=== PATIENT | male | born 1945 | race African-American/Black ===

== ENCOUNTER 2017-06-08 20:22 | Inpatient (IN) ==
[2017-06-08] MEDS ORDERED: methylPREDNISolone SOD SUC 125 MG/2 ML VIAL IV STA (22:18)
[2017-06-08] MEDS ORDERED: FUROSEMIDE 100 MG/10 ML VIAL IV STA (22:18)
[2017-06-08] MEDS ORDERED: ONDANSETRON 4 MG/2 ML VIAL IV STA (22:18)
[2017-06-08] MEDS ORDERED: MORPHINE 2 MG/1 ML SYRINGE IV STA (22:18)
[2017-06-08] MEDS ORDERED: ALBUTEROL 2.5 MG/3 ML NEB RESP TX SCH (22:30)
[2017-06-08] MEDS ORDERED: MORPHINE 10 MG/1 ML VIAL ONE (22:42)
[2017-06-08] MEDS ORDERED: FUROSEMIDE 40 MG/4 ML VIAL ONE (22:42)
[2017-06-08] MEDS ORDERED: ONDANSETRON 4 MG/2 ML VIAL ONE (22:42)
[2017-06-08] MEDS ORDERED: FUROSEMIDE 20 MG/2 ML VIAL ONE (22:43)
[2017-06-08] MEDS ORDERED: methylPREDNISolone SOD SUC 125 MG/2 ML VIAL ONE (22:43)
[2017-06-08 23:17] LABS: Basophils % 0.2 % (0.0-0.8); Hematocrit 32.7 VOL% (42.0-52.0); Immature Granulocytes % 0.4 %; Immature Granulocytes Absolute 0.02 #; Lymphocytes # 0.6 10*3/uL (1.4-4.0); Lymphocytes % 11.1 % (21.2-54.2); Mean Corpuscular HGB Conc 33.6 GM/DL (32-36); Mean Corpuscular Hemoglobin 32 PG (27-34); Mean Corpuscular Volume 94.8 FL (87-102); Monocytes # 0.3 10*3/uL (0.11-0.8); Neutrophils # 4.3 10*3/uL (1.4-7.4); Neutrophils % 83.3 % (38.7-73.9); Platelet Count 158 T/CUMM (130-400); Red Blood Count 3.45 MC/CUMM (3.8-5.5); Red Cell Distribution Width 13.2 % (9.3-17.3); White Blood Count 5.2 T/CUMM (4-12)
[2017-06-08 23:30] LABS: PT Patient Result 10.9 SECS
[2017-06-08 23:49] LABS: Albumin 3.3 G/DL (3.4-5.0); Bilirubin,Total 0.6 MG/DL (0.2-1.0); Calcium 8.5 MG/DL (8.5-10.1); Osmolality,Calculated 298.7 MOS/KG (273-304); Potassium 3.5 MMOL/L (3.5-5.1); Total Protein 6.2 G/DL (6.4-8.3)
[2017-06-08 23:55] LABS: Troponin I Only 1.64 NG/ML (0.00-0.045)
[2017-06-09] MEDS ORDERED: ASPIRIN 325 MG TABLET ONE (00:16)
[2017-06-09] MEDS ORDERED: ENOXAPARIN 100 MG/ML SYRINGE SUBCUT ONE (01:26)
[2017-06-09] MEDS ORDERED: GLUCAGON 1 MG VIAL IM PRN (01:39)
[2017-06-09] MEDS ORDERED: MORPHINE 2 MG/1 ML SYRINGE IV PRN (01:39)
[2017-06-09] MEDS ORDERED: DEXTROSE 50% 25 GM/50 ML VIAL IV PRN (01:39)
[2017-06-09] MEDS ORDERED: ONDANSETRON 4 MG/2 ML VIAL IV PRN (01:39)
[2017-06-09] MEDS ORDERED: ASPIRIN 325 MG TABLET PO ONE (01:39)
[2017-06-09] MEDS: ENOXAPARIN 100 MG/ML SYRINGE SUBCUT SCH (03:30)
[2017-06-09 07:05] LABS: Risk Ratio 2.72; Thyroid Stimulating Hormone 1.02 uIU/ml (0.358-3.74); VLDL CHOLESTEROL 10.6 MG/DL
[2017-06-09] MEDS ORDERED: NITROGLYCERIN SL 0.4 MG TABLET SL PRN (08:41)
[2017-06-09] MEDS: DOCUSATE SODIUM 100 MG CAPSULE PO SCH ×2 (09:20→20:47)
[2017-06-09] MEDS: ASPIRIN 325 MG TABLET PO SCH (09:21)
[2017-06-09] MEDS: FUROSEMIDE 40 MG/4 ML VIAL IV SCH ×2 (09:21→19:19)
[2017-06-09] MEDS: PANTOPRAZOLE 40 MG TABLET PO SCH (09:21)
[2017-06-09] MEDS: INSULIN REGULAR 100 UNIT/ML SUBCUT SCH ×4 (09:22→20:47)
[2017-06-09] MEDS: CARVEDILOL 6.25 MG TABLET PO SCH ×2 (09:41→20:47)
[2017-06-09] MEDS ORDERED: POTASSIUM CHLORIDE RIDER 10 MEQ in PREMIX 1 EACH IV PRN (10:11)
[2017-06-09] MEDS ORDERED: MAGNESIUM SULF RIDER 2 GM in PREMIX 1 EACH IV PRN ×2 (10:11→10:12)
[2017-06-09] MEDS ORDERED: POTASSIUM CHLORIDE INJ 20 MEQ in SODIUM CHLORIDE 0.45% 250 ML IV PRN (10:12)
[2017-06-09] MEDS ORDERED: diphenhydrAMINE CAP 25 MG CAPSULE PO ONE (10:30)
[2017-06-09] MEDS ORDERED: DIAZEPAM 5 MG TABLET PO ONE (10:30)
[2017-06-09] MEDS ORDERED: traMADol 50 MG TABLET PO PRN (10:40)
[2017-06-09 12:06] LABS: Hepatitis B Surface Ag Quant < 0.10 Index; Hepatitis B Surface Ag Result Negative (Negative)
[2017-06-09 12:09] LABS: Hepatitis A Ab IgM Quant 0.28 Index; Hepatitis A Ab IgM Result Negative (Negative)
[2017-06-09 12:10] LABS: Hepatitis B Core IgM Quant 0.16 Index; Hepatitis B Core IgM Result Negative (Negative); Hepatitis C Virus Ab Quant 0.03 Index; Hepatitis C Virus Ab Result Negative (Negative)
[2017-06-09] MEDS ORDERED: ATORVASTATIN 20 MG TABLET PO SCH (21:00)
[2017-06-10] MEDS: ENOXAPARIN 100 MG/ML SYRINGE SUBCUT SCH (02:04)
[2017-06-10] MEDS ORDERED: SODIUM CHLORIDE 0.9% 1,000 ML IV SCH (06:00)
[2017-06-10] MEDS ORDERED: diphenhydrAMINE CAP 25 MG CAPSULE PO ONE (06:00)
[2017-06-10] MEDS ORDERED: DIAZEPAM 5 MG TABLET PO ONE (06:00)
[2017-06-10 06:40] LABS: Basophils # 0.1 10*3/uL (0.0-0.2); Basophils % 0.7 % (0.0-0.8); Eosinophils # 0.1 10*3/uL (0.0-0.87); Eosinophils % 0.8 % (0.00-10.9); Hematocrit 33.3 VOL% (42.0-52.0); Immature Granulocytes % 0.5 %; Immature Granulocytes Absolute 0.05 #; Lymphocytes # 2.9 10*3/uL (1.4-4.0); Lymphocytes % 28.5 % (21.2-54.2); Mean Corpuscular Hemoglobin 32 PG (27-34); Mean Platelet Volume 10.6 FL (9.6-12.0); Monocytes # 0.7 10*3/uL (0.11-0.8); Neutrophils # 6.3 10*3/uL (1.4-7.4); Neutrophils % 62.5 % (38.7-73.9); Platelet Count 162 T/CUMM (130-400); Red Blood Count 3.47 MC/CUMM (3.8-5.5); Red Cell Distribution Width 13.7 % (9.3-17.3); White Blood Count 10.1 T/CUMM (4-12)
[2017-06-10 06:51] LABS: Calcium 8.6 MG/DL (8.5-10.1); Potassium 3.7 MMOL/L (3.5-5.1)
[2017-06-10] MEDS: CARVEDILOL 6.25 MG TABLET PO SCH ×3 (06:57→20:44)
[2017-06-10 07:05] LABS: Calcium 8.6 MG/DL (8.5-10.1); Magnesium 2.2 MG/DL (1.8-2.4); Potassium 3.6 MMOL/L (3.5-5.1)
[2017-06-10] MEDS ORDERED: LIDOCAINE 1% 20 ML VIAL ONE (07:31)
[2017-06-10] MEDS ORDERED: MIDAZOLAM 2 MG/2 ML VIAL ONE (07:31)
[2017-06-10] MEDS ORDERED: fentaNYL 100 MCG/2 ML VIAL ONE (07:32)
[2017-06-10] MEDS ORDERED: VERAPAMIL 5 MG/2 ML VIAL ONE (07:35)
[2017-06-10] MEDS ORDERED: NITROGLYCERIN DRIP 50 MG/250 ML BOTTLE IV ONE (07:35)
[2017-06-10] MEDS ORDERED: ENOXAPARIN 30 MG/0.3 ML SYRINGE ONE (07:40)
[2017-06-10] MEDS: INSULIN REGULAR 100 UNIT/ML SUBCUT SCH ×4 (07:47→20:46)
[2017-06-10] MEDS: LOSARTAN 50 MG TABLET PO SCH (09:08)
[2017-06-10] MEDS: DOCUSATE SODIUM 100 MG CAPSULE PO SCH ×2 (09:09→20:44)
[2017-06-10] MEDS: PANTOPRAZOLE 40 MG TABLET PO SCH ×2 (09:09→09:12)
[2017-06-10] MEDS: FUROSEMIDE 40 MG/4 ML VIAL IV SCH ×2 (09:09→16:18)
[2017-06-10] MEDS: ASPIRIN 325 MG TABLET PO SCH (09:11)
[2017-06-10] MEDS: ATORVASTATIN 80 MG TABLET PO SCH (20:44)
[2017-06-11] MEDS: ENOXAPARIN 100 MG/ML SYRINGE SUBCUT SCH (01:52)
[2017-06-11 06:15] LABS: Basophils # 0.1 10*3/uL (0.0-0.2); Eosinophils # 0.2 10*3/uL (0.0-0.87); Eosinophils % 2.8 % (0.00-10.9); Hematocrit 31.2 VOL% (42.0-52.0); Hemoglobin 10.6 GM/DL (14.0-18.0); Immature Granulocytes % 0.5 %; Immature Granulocytes Absolute 0.03 #; Lymphocytes # 2.3 10*3/uL (1.4-4.0); Mean Corpuscular Hemoglobin 32 PG (27-34); Mean Corpuscular Volume 94.3 FL (87-102); Mean Platelet Volume 10.5 FL (9.6-12.0); Monocytes # 0.5 10*3/uL (0.11-0.8); Monocytes % 8.6 % (1.7-12.7); Neutrophils # 3.1 10*3/uL (1.4-7.4); Neutrophils % 50.1 % (38.7-73.9); Platelet Count 151 T/CUMM (130-400); Red Blood Count 3.31 MC/CUMM (3.8-5.5); Red Cell Distribution Width 13.6 % (9.3-17.3); White Blood Count 6.1 T/CUMM (4-12)
[2017-06-11 06:45] LABS: Calcium 8.5 MG/DL (8.5-10.1); Magnesium 2.3 MG/DL (1.8-2.4); Osmolality,Calculated 296.3 MOS/KG (273-304); Potassium 4.4 MMOL/L (3.5-5.1)
[2017-06-11] MEDS: INSULIN REGULAR 100 UNIT/ML SUBCUT SCH ×4 (07:49→21:10)
[2017-06-11] MEDS: LOSARTAN 50 MG TABLET PO SCH (08:19)
[2017-06-11] MEDS: DOCUSATE SODIUM 100 MG CAPSULE PO SCH ×2 (08:19→21:09)
[2017-06-11] MEDS: CARVEDILOL 6.25 MG TABLET PO SCH ×2 (08:19→21:09)
[2017-06-11] MEDS: FUROSEMIDE 40 MG/4 ML VIAL IV SCH ×2 (08:19→17:09)
[2017-06-11] MEDS: PANTOPRAZOLE 40 MG TABLET PO SCH ×2 (08:19→09:44)
[2017-06-11] MEDS: ASPIRIN 325 MG TABLET PO SCH (08:19)
[2017-06-11] MEDS: NITROGLYCERIN 2% OINT 1 INCH/GM PACK TOP SCH ×2 (12:03→17:10)
[2017-06-11] MEDS: ATORVASTATIN 80 MG TABLET PO SCH (21:09)
[2017-06-12] MEDS: ENOXAPARIN 100 MG/ML SYRINGE SUBCUT SCH (01:34)
[2017-06-12 04:45] LABS: Basophils # 0.1 10*3/uL (0.0-0.2); Basophils % 1.1 % (0.0-0.8); Eosinophils # 0.3 10*3/uL (0.0-0.87); Eosinophils % 3.9 % (0.00-10.9); Hematocrit 32.9 VOL% (42.0-52.0); Immature Granulocytes % 0.3 %; Immature Granulocytes Absolute 0.02 #; Mean Corpuscular HGB Conc 33.4 GM/DL (32-36); Mean Corpuscular Hemoglobin 32 PG (27-34); Mean Corpuscular Volume 96.5 FL (87-102); Mean Platelet Volume 10.1 FL (9.6-12.0); Monocytes # 0.8 10*3/uL (0.11-0.8); Monocytes % 11.9 % (1.7-12.7); Neutrophils # 3.3 10*3/uL (1.4-7.4); Neutrophils % 51.8 % (38.7-73.9); Platelet Count 149 T/CUMM (130-400); Red Blood Count 3.41 MC/CUMM (3.8-5.5); Red Cell Distribution Width 13.3 % (9.3-17.3); White Blood Count 6.4 T/CUMM (4-12)
[2017-06-12 05:12] LABS: Calcium 8.6 MG/DL (8.5-10.1)
[2017-06-12 05:13] LABS: Magnesium 2.3 MG/DL (1.8-2.4); Osmolality,Calculated 289.5 MOS/KG (273-304); Potassium 4.3 MMOL/L (3.5-5.1)
[2017-06-12] MEDS: NITROGLYCERIN 2% OINT 1 INCH/GM PACK TOP SCH ×4 (06:48→19:30)
[2017-06-12] MEDS ORDERED: ASPIRIN CHEW 81 MG TABLET PO ONE (09:12)
[2017-06-12] MEDS: FUROSEMIDE 40 MG/4 ML VIAL IV SCH ×2 (09:29→16:27)
[2017-06-12] MEDS: PANTOPRAZOLE 40 MG TABLET PO SCH ×2 (09:31→09:33)
[2017-06-12] MEDS: INSULIN REGULAR 100 UNIT/ML SUBCUT SCH ×4 (09:31→21:22)
[2017-06-12] MEDS: CARVEDILOL 6.25 MG TABLET PO SCH ×2 (09:31→21:21)
[2017-06-12] MEDS: ASPIRIN 325 MG TABLET PO SCH (09:32)
[2017-06-12] MEDS: DOCUSATE SODIUM 100 MG CAPSULE PO SCH ×2 (09:32→21:21)
[2017-06-12] MEDS: LOSARTAN 50 MG TABLET PO SCH (09:32)
[2017-06-12] MEDS: ATORVASTATIN 80 MG TABLET PO SCH (21:21)
[2017-06-13] MEDS: NITROGLYCERIN 2% OINT 1 INCH/GM PACK TOP SCH ×4 (00:08→18:28)
[2017-06-13] MEDS: ENOXAPARIN 100 MG/ML SYRINGE SUBCUT SCH (02:27)
[2017-06-13 03:17] LABS: Basophils % 0.7 % (0.0-0.8); Eosinophils # 0.2 10*3/uL (0.0-0.87); Eosinophils % 3.2 % (0.00-10.9); Hematocrit 34.1 VOL% (42.0-52.0); Hemoglobin 11.3 GM/DL (14.0-18.0); Immature Granulocytes % 0.4 %; Immature Granulocytes Absolute 0.02 #; Lymphocytes # 1.7 10*3/uL (1.4-4.0); Lymphocytes % 30.1 % (21.2-54.2); Mean Corpuscular HGB Conc 33.1 GM/DL (32-36); Mean Corpuscular Hemoglobin 32 PG (27-34); Mean Corpuscular Volume 95.5 FL (87-102); Mean Platelet Volume 10.1 FL (9.6-12.0); Monocytes # 0.6 10*3/uL (0.11-0.8); Monocytes % 10.9 % (1.7-12.7); Neutrophils # 3.1 10*3/uL (1.4-7.4); Neutrophils % 54.7 % (38.7-73.9); Platelet Count 148 T/CUMM (130-400); Red Blood Count 3.57 MC/CUMM (3.8-5.5); Red Cell Distribution Width 13.2 % (9.3-17.3); White Blood Count 5.6 T/CUMM (4-12)
[2017-06-13 03:33] LABS: Calcium 8.1 MG/DL (8.5-10.1); Magnesium 2.4 MG/DL (1.8-2.4); Osmolality,Calculated 295.5 MOS/KG (273-304); Potassium 4.2 MMOL/L (3.5-5.1)
[2017-06-13] MEDS ORDERED: ASPIRIN CHEW 81 MG TABLET PO ONE (09:17)
[2017-06-13] MEDS: DOCUSATE SODIUM 100 MG CAPSULE PO SCH ×2 (10:02→21:08)
[2017-06-13] MEDS: LOSARTAN 50 MG TABLET PO SCH (10:02)
[2017-06-13] MEDS: ASPIRIN 325 MG TABLET PO SCH (10:03)
[2017-06-13] MEDS: amLODIPine 5 MG TABLET PO SCH (10:03)
[2017-06-13] MEDS: CARVEDILOL 6.25 MG TABLET PO SCH ×2 (10:04→21:08)
[2017-06-13] MEDS: PANTOPRAZOLE 40 MG TABLET PO SCH ×2 (10:04)
[2017-06-13] MEDS: FUROSEMIDE 40 MG/4 ML VIAL IV SCH ×2 (10:05→16:12)
[2017-06-13] MEDS: INSULIN REGULAR 100 UNIT/ML SUBCUT SCH ×4 (10:05→21:08)
[2017-06-13] MEDS: ATORVASTATIN 80 MG TABLET PO SCH (21:08)
[2017-06-14] MEDS: NITROGLYCERIN 2% OINT 1 INCH/GM PACK TOP SCH ×4 (00:07→18:42)
[2017-06-14] MEDS: ENOXAPARIN 100 MG/ML SYRINGE SUBCUT SCH (02:02)
[2017-06-14 04:46] LABS: Basophils % 0.8 % (0.0-0.8); Eosinophils # 0.2 10*3/uL (0.0-0.87); Eosinophils % 4.3 % (0.00-10.9); Hematocrit 34.9 VOL% (42.0-52.0); Immature Granulocytes % 0.4 %; Immature Granulocytes Absolute 0.02 #; Lymphocytes # 1.7 10*3/uL (1.4-4.0); Lymphocytes % 32.5 % (21.2-54.2); Mean Corpuscular HGB Conc 34.4 GM/DL (32-36); Mean Corpuscular Hemoglobin 32 PG (27-34); Mean Corpuscular Volume 93.1 FL (87-102); Mean Platelet Volume 9.6 FL (9.6-12.0); Monocytes # 0.6 10*3/uL (0.11-0.8); Monocytes % 11.7 % (1.7-12.7); Neutrophils # 2.6 10*3/uL (1.4-7.4); Neutrophils % 50.3 % (38.7-73.9); Platelet Count 164 T/CUMM (130-400); Red Blood Count 3.75 MC/CUMM (3.8-5.5); Red Cell Distribution Width 13.2 % (9.3-17.3); White Blood Count 5.1 T/CUMM (4-12)
[2017-06-14 06:10] LABS: Calcium 8.8 MG/DL (8.5-10.1); Magnesium 2.5 MG/DL (1.8-2.4); Osmolality,Calculated 300.5 MOS/KG (273-304); Potassium 4.4 MMOL/L (3.5-5.1)
[2017-06-14] MEDS ORDERED: ASPIRIN CHEW 81 MG TABLET PO ONE (08:41)
[2017-06-14] MEDS: DOCUSATE SODIUM 100 MG CAPSULE PO SCH ×2 (08:46→21:10)
[2017-06-14] MEDS: PANTOPRAZOLE 40 MG TABLET PO SCH (08:46)
[2017-06-14] MEDS: LOSARTAN 50 MG TABLET PO SCH (08:46)
[2017-06-14] MEDS: CARVEDILOL 6.25 MG TABLET PO SCH ×2 (08:46→21:10)
[2017-06-14] MEDS: amLODIPine 5 MG TABLET PO SCH (08:46)
[2017-06-14] MEDS: INSULIN REGULAR 100 UNIT/ML SUBCUT SCH ×4 (08:47→21:06)
[2017-06-14] MEDS: ASPIRIN 325 MG TABLET PO SCH (08:47)
[2017-06-14] MEDS: FUROSEMIDE 40 MG/4 ML VIAL IV SCH ×2 (08:47→16:15)
[2017-06-14] MEDS ORDERED: GLUCAGON 1 MG VIAL IM PRN (11:51)
[2017-06-14] MEDS ORDERED: DEXTROSE 50% 25 GM/50 ML VIAL IV PRN (11:51)
[2017-06-14] MEDS: SODIUM CHLORIDE 0.9% 1,000 ML IV SCH (12:28)
[2017-06-14] MEDS: CHLORHEXIDINE 0.12% ORAL RINSE 60 ML BOTTLE SWISH/SPIT SCH (21:10)
[2017-06-14] MEDS: ALUMINUM/MAGNES/SIMETH MAX STR 30 ML UDCUP PO PRN (21:10)
[2017-06-14] MEDS: ATORVASTATIN 80 MG TABLET PO SCH (21:10)
[2017-06-15] MEDS: NITROGLYCERIN 2% OINT 1 INCH/GM PACK TOP SCH ×4 (01:07→17:39)
[2017-06-15] MEDS: ENOXAPARIN 100 MG/ML SYRINGE SUBCUT SCH (01:19)
[2017-06-15 05:28] LABS: Basophils % 0.8 % (0.0-0.8); Eosinophils # 0.1 10*3/uL (0.0-0.87); Eosinophils % 2.8 % (0.00-10.9); Hematocrit 33.8 VOL% (42.0-52.0); Hemoglobin 11.3 GM/DL (14.0-18.0); Immature Granulocytes % 0.4 %; Immature Granulocytes Absolute 0.02 #; Lymphocytes # 1.7 10*3/uL (1.4-4.0); Lymphocytes % 32.5 % (21.2-54.2); Mean Corpuscular HGB Conc 33.4 GM/DL (32-36); Mean Corpuscular Hemoglobin 32 PG (27-34); Mean Corpuscular Volume 94.4 FL (87-102); Monocytes # 0.6 10*3/uL (0.11-0.8); Monocytes % 12.4 % (1.7-12.7); Neutrophils # 2.6 10*3/uL (1.4-7.4); Neutrophils % 51.1 % (38.7-73.9); Platelet Count 134 T/CUMM (130-400); Red Blood Count 3.58 MC/CUMM (3.8-5.5); Red Cell Distribution Width 13.3 % (9.3-17.3); White Blood Count 5.1 T/CUMM (4-12)
[2017-06-15 05:56] LABS: Calcium 8.3 MG/DL (8.5-10.1); Magnesium 2.4 MG/DL (1.8-2.4); Osmolality,Calculated 292.4 MOS/KG (273-304); Potassium 4.3 MMOL/L (3.5-5.1)
[2017-06-15] MEDS ORDERED: CEFUROXIME INJ 1,500 MG in SYRINGE 1 EACH IV ONE (06:00)
[2017-06-15] MEDS ORDERED: ASPIRIN CHEW 81 MG TABLET PO ONE (07:53)
[2017-06-15] MEDS: INSULIN REGULAR 100 UNIT/ML SUBCUT SCH ×4 (08:19→21:04)
[2017-06-15] MEDS: PANTOPRAZOLE 40 MG TABLET PO SCH (08:34)
[2017-06-15] MEDS: amLODIPine 5 MG TABLET PO SCH (08:35)
[2017-06-15] MEDS: LOSARTAN 50 MG TABLET PO SCH (08:35)
[2017-06-15] MEDS: DOCUSATE SODIUM 100 MG CAPSULE PO SCH ×2 (08:35→21:03)
[2017-06-15] MEDS: ASPIRIN 325 MG TABLET PO SCH (08:35)
[2017-06-15] MEDS: CARVEDILOL 6.25 MG TABLET PO SCH ×2 (08:35→21:02)
[2017-06-15] MEDS: CHLORHEXIDINE 0.12% ORAL RINSE 60 ML BOTTLE SWISH/SPIT SCH ×2 (08:54→21:03)
[2017-06-15] MEDS: FUROSEMIDE 40 MG/4 ML VIAL IV SCH ×2 (08:54→16:35)
[2017-06-15] MEDS: SODIUM CHLORIDE 0.9% 1,000 ML IV SCH (13:00)
[2017-06-15] MEDS: CHLORHEXIDINE 4% SOLN 118 ML BOTTLE TOP SCH ×2 (14:50→21:04)
[2017-06-15] MEDS: ALUMINUM/MAGNES/SIMETH MAX STR 30 ML UDCUP PO PRN (17:54)
[2017-06-15] MEDS ORDERED: FAMOTIDINE 20 MG TABLET PO ONE (20:33)
[2017-06-15] MEDS: ATORVASTATIN 80 MG TABLET PO SCH (21:02)
[2017-06-16] MEDS: NITROGLYCERIN 2% OINT 1 INCH/GM PACK TOP SCH (00:21)
[2017-06-16 04:26] LABS: ABG Base Excess 2.6 MMOL/L (-2.5-2.5); ABG HCO3 26.6 MMOL/L (20-26); ABG Oxygen Saturation 93.9 % (95-100); ABG PH 7.429 (7.35-7.45); ABG PO2 70.3 MM HG (80-95); ABG TCO2 24.1 MMOL/L (23-27); Allen Test Positive; Pt O2 Delivery Device Room Air
[2017-06-16] MEDS ORDERED: PAPAVERINE 60 MG/2 ML VIAL ONE (05:23)
[2017-06-16] MEDS ORDERED: VANCOMYCIN 1,000 MG VIAL ONE (05:24)
[2017-06-16] MEDS ORDERED: FAMOTIDINE 20 MG TABLET PO ONE (05:30)
[2017-06-16] MEDS ORDERED: DIAZEPAM 5 MG TABLET PO ONE (05:30)
[2017-06-16] MEDS ORDERED: SUFentanil 250 MCG/5 ML AMP ONE (05:37)
[2017-06-16] MEDS ORDERED: CALCIUM CHLORIDE 1,000 MG/10 ML VIAL IV ONE (05:37)
[2017-06-16] MEDS ORDERED: NITROGLYCERIN DRIP 50 MG/250 ML BOTTLE IV ONE (05:38)
[2017-06-16] MEDS ORDERED: ETOMIDATE 40 MG/20 ML VIAL IV ONE (05:38)
[2017-06-16] MEDS ORDERED: PHENYLEPHRINE DRIP 20 MG/250 ML PREMIX IV ONE (05:38)
[2017-06-16] MEDS ORDERED: SODIUM CHLORIDE 0.9% 1,000 ML IV ONE (05:38)
[2017-06-16] MEDS ORDERED: MIDAZOLAM 10 MG/2 ML VIAL ONE (05:38)
[2017-06-16] MEDS ORDERED: ePHEDrine 50 MG/ML AMP ONE (05:38)
[2017-06-16] MEDS ORDERED: VECURONIUM 10 MG VIAL IV ONE (05:38)
[2017-06-16] MEDS ORDERED: LACTATED RINGERS 1,000 ML IV ONE (05:38)
[2017-06-16] MEDS: CARVEDILOL 6.25 MG TABLET PO SCH (05:39)
[2017-06-16 05:54] LABS: Basophils # 0.1 10*3/uL (0.0-0.2); Basophils % 0.9 % (0.0-0.8); Eosinophils # 0.1 10*3/uL (0.0-0.87); Eosinophils % 2.6 % (0.00-10.9); Hematocrit 33.8 VOL% (42.0-52.0); Hemoglobin 11.6 GM/DL (14.0-18.0); Immature Granulocytes % 0.6 %; Immature Granulocytes Absolute 0.03 #; Lymphocytes # 1.5 10*3/uL (1.4-4.0); Lymphocytes % 27.6 % (21.2-54.2); Mean Corpuscular HGB Conc 34.3 GM/DL (32-36); Mean Corpuscular Hemoglobin 32 PG (27-34); Mean Corpuscular Volume 93.1 FL (87-102); Mean Platelet Volume 9.6 FL (9.6-12.0); Monocytes # 0.7 10*3/uL (0.11-0.8); Monocytes % 12.5 % (1.7-12.7); Neutrophils % 55.8 % (38.7-73.9); Platelet Count 154 T/CUMM (130-400); Red Blood Count 3.63 MC/CUMM (3.8-5.5); Red Cell Distribution Width 13.2 % (9.3-17.3); White Blood Count 5.3 T/CUMM (4-12)
[2017-06-16] MEDS ORDERED: CEFUROXIME INJ 1,500 MG in SYRINGE 1 EACH IV ONE (06:00)
[2017-06-16 06:21] LABS: Calcium 8.2 MG/DL (8.5-10.1); Magnesium 2.6 MG/DL (1.8-2.4); Osmolality,Calculated 288.3 MOS/KG (273-304); Potassium 4.2 MMOL/L (3.5-5.1)
[2017-06-16 07:35] LABS: ABG Base Excess 1.4 MMOL/L (-2.5-2.5); ABG HCO3 25.7 MMOL/L (20-26); ABG PCO2 34.5 MM HG (35-48); ABG PH 7.465 (7.35-7.45); ABG TCO2 22.3 MMOL/L (23-27); Glucose Heart Surgery 103 MG/DL (74-106); Hematocrit Heart Surgery 32.4 PERCENT (42-52); Hemoglobin Heart Surgery 10.5 G/DL (14.0-18.0); Ionized Calcium Arterial 1.28 MMOL/L (1.21-1.46); PCO2 Patient Temp Arterial 34.5 MMHG; PH Patient Temp Arterial 7.465; Patient Temperature 37 CELCIUS; Sodium Heart/CVR 139 MMOL/L (135-145)
[2017-06-16 07:37] LABS: Apearance,Urine CLEAR (Clear); Bilirubin,Urine Negative (Negative); Blood, Urine Negative (Negative); Glucose,Urine (UA) Negative (Negative); Ketones,Urine Negative (Negative); Nitrite,Urine Negative (Negative); Protein,Urine 100 MG/DL; Urine Color Yellow (Yellow); Urine Specific Gravity 1.012 (1.001-1.035); Urine Urobilinogen < 2.0 EU/DL (0.2-1.0); WBC,Urine 1 /HPF (0-6)
[2017-06-16] MEDS ORDERED: PHENYLEPHRINE DRIP 40 MG/250 ML PREMIX IV ONE (08:09)
[2017-06-16] MEDS ORDERED: NITROPRUSSIDE 50 MG/2 ML VIAL ONE (08:09)
[2017-06-16 09:08] LABS: Hemoglobin Heart Surgery 6.7 G/DL (14.0-18.0); PCO2 Patient Temp Venous 35.5 MM HG; PH Patient Temp Venous 7.47; PO2 Patient Temp Venous 48.9 MM HG; Potassium Heart/CVR 4.6 MMOL/L (3.5-5.1); VBG Base Excess 2.4 MEQ/L (0-4); VBG HCO3 26.5 MEQ/L (24-28); VBG Oxygen Saturation 91.1 %; VBG PH 7.426; VBG PO2 59.6 MMHG (17-40)
[2017-06-16] MEDS ORDERED: TRANEXAMIC ACID 1,000 MG/10 ML VIAL IV ONE (09:15)
[2017-06-16 09:39] LABS: Hematocrit Heart Surgery 24.3 PERCENT (42-52); Hemoglobin Heart Surgery 7.8 G/DL (14.0-18.0); PH Patient Temp Venous 7.529; PO2 Patient Temp Venous 39.6 MM HG; Potassium Heart/CVR 4.7 MMOL/L (3.5-5.1); VBG Base Excess 1.2 MEQ/L (0-4); VBG HCO3 25.3 MEQ/L (24-28); VBG Oxygen Saturation 87.1 %; VBG PCO2 32.4 MMHG (41-51); VBG PH 7.484; VBG PO2 48.6 MMHG (17-40)
[2017-06-16 10:05] LABS: PCO2 Patient Temp Venous 34.7 MM HG; PH Patient Temp Venous 7.464; PO2 Patient Temp Venous 46.5 MM HG; Potassium Heart/CVR 4.9 MMOL/L (3.5-5.1); VBG Base Excess 1.4 MEQ/L (0-4); VBG HCO3 25.5 MEQ/L (24-28); VBG Oxygen Saturation 84.7 %; VBG PCO2 34.7 MMHG (41-51); VBG PH 7.464; VBG PO2 46.5 MMHG (17-40)
[2017-06-16] MEDS ORDERED: DEXTROSE 5% KCL 20 MEQ 20 MEQ/1,000 ML BAG IV ONE (10:31)
[2017-06-16] MEDS ORDERED: SODIUM BICARBONATE 50 MEQ/50 ML SYRINGE IV ONE (10:31)
[2017-06-16] MEDS ORDERED: ALBUMIN 25% 25 GM/100 ML VIAL IV ONE (10:31)
[2017-06-16] MEDS ORDERED: PROTAMINE SULFATE 250 MG/25 ML VIAL IV ONE (10:31)
[2017-06-16 10:32] LABS: ABG Base Excess 1.3 MMOL/L (-2.5-2.5); ABG HCO3 25.6 MMOL/L (20-26); ABG PCO2 40.6 MM HG (35-48); ABG PH 7.413 (7.35-7.45); ABG TCO2 23.9 MMOL/L (23-27); Glucose Heart Surgery 183 MG/DL (74-106); Hematocrit Heart Surgery 27.4 PERCENT (42-52); Hemoglobin Heart Surgery 8.8 G/DL (14.0-18.0); Ionized Calcium Arterial 1.26 MMOL/L (1.21-1.46); PCO2 Patient Temp Arterial 40.6 MMHG; PH Patient Temp Arterial 7.413; Patient Temperature 37 CELCIUS; Potassium Heart/CVR 4.5 MMOL/L (3.5-5.1); Sodium Heart/CVR 133 MMOL/L (135-145)
[2017-06-16] MEDS ORDERED: FUROSEMIDE 20 MG/2 ML VIAL ONE (10:32)
[2017-06-16] MEDS ORDERED: MAGNESIUM SULFATE 1 GM/2 ML VIAL ONE (10:32)
[2017-06-16] MEDS ORDERED: methylPREDNISolone SOD SUC 1,000 MG/8 ML VIAL ONE (10:32)
[2017-06-16] MEDS ORDERED: HEPARIN 10,000 UNIT/10 ML VIAL ONE (10:32)
[2017-06-16] MEDS ORDERED: MANNITOL 12.5 GM/50 ML VIAL IV ONE (10:32)
[2017-06-16] MEDS ORDERED: POTASSIUM CHLORIDE RIDER 10 MEQ in PREMIX 1 EACH IV PRN (11:27)
[2017-06-16] MEDS ORDERED: ACETAMINOPHEN 650 MG SUPP RECTAL PRN (11:27)
[2017-06-16] MEDS ORDERED: MIDAZOLAM 10 MG/2 ML VIAL IV PRN (11:27)
[2017-06-16] MEDS ORDERED: ONDANSETRON 4 MG/2 ML VIAL IV PRN (11:27)
[2017-06-16] MEDS ORDERED: LACTATED RINGERS 250 ML IV PRN (11:27)
[2017-06-16] MEDS ORDERED: DEXTROSE 50% 25 GM/50 ML VIAL IV PRN ×2 (11:27)
[2017-06-16] MEDS ORDERED: MAGNESIUM SULF RIDER 4 GM in PREMIX 1 EACH IV PRN (11:27)
[2017-06-16] MEDS ORDERED: PHENYLEPHRINE DRIP 40 MG/250 ML PREMIX IV PRN (11:27)
[2017-06-16] MEDS ORDERED: CALCIUM CHLORIDE 1,000 MG/10 ML SYRINGE IV PRN (11:27)
[2017-06-16] MEDS ORDERED: INSULIN REGULAR 100 UNIT/ML IV ONE (11:27)
[2017-06-16] MEDS ORDERED: POTASSIUM CHLORIDE RIDER 20 MEQ in PREMIX 1 EACH IV PRN (11:27)
[2017-06-16] MEDS ORDERED: MAGNESIUM SULF RIDER 2 GM in PREMIX 1 EACH IV PRN (11:27)
[2017-06-16] MEDS ORDERED: INSULIN REGULAR 100 UNIT/ML IV PRN (11:27)
[2017-06-16] MEDS ORDERED: VECURONIUM 10 MG VIAL IV PRN ×2 (11:27)
[2017-06-16] MEDS ORDERED: ALBUMIN 5% 12.5 GM in PREMIX 1 EACH IV PRN (11:27)
[2017-06-16] MEDS ORDERED: INSULIN REGULAR DRIP 100 ML IV SCH (11:30)
[2017-06-16 11:38] LABS: ABG Base Excess 1.1 MMOL/L (-2.5-2.5); ABG HCO3 25.5 MMOL/L (20-26); ABG Oxygen Saturation 99.8 % (95-100); ABG PCO2 40.6 MM HG (35-48); ABG PH 7.411 (7.35-7.45); ABG TCO2 23.7 MMOL/L (23-27); Basophils % 0.3 % (0.0-0.8); Eosinophils # 0.1 10*3/uL (0.0-0.87); Eosinophils % 0.8 % (0.00-10.9); Glucose Heart Surgery 150 MG/DL (74-106); Hematocrit 26.5 VOL% (42.0-52.0); Hematocrit Heart Surgery 28.7 PERCENT (42-52); Hemoglobin Heart Surgery 9.3 G/DL (14.0-18.0); Immature Granulocytes % 1.7 %; Immature Granulocytes Absolute 0.11 #; Lymphocytes # 0.7 10*3/uL (1.4-4.0); Lymphocytes % 10.4 % (21.2-54.2); Mean Corpuscular HGB Conc 35.1 GM/DL (32-36); Mean Corpuscular Hemoglobin 32 PG (27-34); Mean Corpuscular Volume 91.4 FL (87-102); Mean Platelet Volume 9.8 FL (9.6-12.0); Monocytes # 0.3 10*3/uL (0.11-0.8); Monocytes % 4.8 % (1.7-12.7); Neutrophils # 5.4 10*3/uL (1.4-7.4); Potassium Heart/CVR 4.6 MMOL/L (3.5-5.1); Red Cell Distribution Width 13.8 % (9.3-17.3); White Blood Count 6.6 T/CUMM (4-12)
[2017-06-16 11:45] LABS: Hemoglobin 9.3 GM/DL (14.0-18.0); Platelet Count 95 T/CUMM (130-400)
[2017-06-16 11:47] LABS: INR 1.1; Partial Thromboplastin Time 33.6 SECS (0-40)
[2017-06-16 11:57] LABS: Platelet Estimate Decreased
[2017-06-16] MEDS: NITROPRUSSIDE 100 MG in DEXTROSE 5% 250 ML IV PRN (12:04)
[2017-06-16] MEDS: SODIUM CHLORIDE 0.45% 1,000 ML IV SCH ×2 (12:06→12:07)
[2017-06-16] MEDS: CHLORHEXIDINE 4% SOLN 118 ML BOTTLE TOP SCH (12:07)
[2017-06-16] MEDS ORDERED: PROTAMINE SULFATE 50 MG/5 ML VIAL IV ONE (12:08)
[2017-06-16 12:23] LABS: Albumin 3.1 G/DL (3.4-5.0); Bilirubin,Total 0.8 MG/DL (0.2-1.0); Calcium 10.4 MG/DL (8.5-10.1); Magnesium 2.7 MG/DL (1.8-2.4); Osmolality,Calculated 288.5 MOS/KG (273-304); Potassium 4.8 MMOL/L (3.5-5.1); Total Protein 5.2 G/DL (6.4-8.3)
[2017-06-16 12:24] LABS: CKMB % 7.8 %
[2017-06-16 12:31] LABS: Troponin I Only 3.16 NG/ML (0.00-0.045)
[2017-06-16 13:26] LABS: ABG Base Excess 0.3 MMOL/L (-2.5-2.5); ABG HCO3 24.2 MMOL/L (20-26); ABG Oxygen Saturation 97.3 % (95-100); ABG PCO2 36.5 MM HG (35-48); ABG PO2 102.9 MM HG (80-95); ABG TCO2 25.4 MMOL/L (23-27); Glucose Heart Surgery 136 MG/DL (74-106); Hemoglobin Heart Surgery 11.1 G/DL (14.0-18.0); Potassium Heart/CVR 4.9 MMOL/L (3.5-5.1)
[2017-06-16] MEDS: MIDAZOLAM 2 MG/2 ML VIAL IV PRN ×2 (14:58→15:39)
[2017-06-16 15:11] LABS: ABG Base Excess -1.3 MMOL/L (-2.5-2.5); ABG HCO3 23.4 MMOL/L (20-26); ABG Oxygen Saturation 99.2 % (95-100); ABG PCO2 38.7 MM HG (35-48); ABG TCO2 21.2 MMOL/L (23-27); Glucose Heart Surgery 168 MG/DL (74-106); Hematocrit Heart Surgery 32.4 PERCENT (42-52); Hemoglobin Heart Surgery 10.5 G/DL (14.0-18.0)
[2017-06-16] MEDS: MORPHINE 2 MG/1 ML SYRINGE IV PRN (15:38)
[2017-06-16 17:28] LABS: ABG Base Excess 1.7 MMOL/L (-2.5-2.5); ABG HCO3 25.9 MMOL/L (20-26); ABG Oxygen Saturation 97.8 % (95-100); ABG PCO2 38.6 MM HG (35-48); ABG PH 7.444 (7.35-7.45); ABG TCO2 27.1 MMOL/L (23-27); Glucose Heart Surgery 154 MG/DL (74-106); Hemoglobin Heart Surgery 9.6 G/DL (14.0-18.0); Potassium Heart/CVR 5.1 MMOL/L (3.5-5.1)
[2017-06-16] MEDS ORDERED: PROPOFOL 1,000 MG/100 ML BOTTLE IV SCH (18:00)
[2017-06-16 19:27] LABS: ABG Base Excess -0.6 MMOL/L (-2.5-2.5); ABG HCO3 23.9 MMOL/L (20-26); ABG Oxygen Saturation 99.3 % (95-100); ABG PCO2 34.6 MM HG (35-48); ABG PH 7.434 (7.35-7.45); ABG TCO2 20.9 MMOL/L (23-27); Glucose Heart Surgery 132 MG/DL (74-106); Hematocrit Heart Surgery 31.9 PERCENT (42-52); Hemoglobin Heart Surgery 10.3 G/DL (14.0-18.0); Potassium Heart/CVR 5.1 MMOL/L (3.5-5.1)
[2017-06-16] MEDS: CEFUROXIME INJ 1,500 MG in SYRINGE 1 EACH IV SCH (19:27)
[2017-06-16 20:18] LABS: CKMB % 4.5 %
[2017-06-16 20:20] LABS: Troponin I Only 6.59 NG/ML (0.00-0.045)
[2017-06-16] MEDS: CHLORHEXIDINE 0.12% ORAL RINSE 60 ML BOTTLE SWISH/SPIT SCH (21:11)
[2017-06-16] MEDS: MORPHINE 10 MG/1 ML VIAL IV PRN (23:10)
[2017-06-16 23:44] LABS: ABG Base Excess -1.7 MMOL/L (-2.5-2.5); ABG Oxygen Saturation 98.6 % (95-100); ABG PCO2 41.3 MM HG (35-48); ABG PH 7.364 (7.35-7.45); ABG TCO2 21.1 MMOL/L (23-27); Glucose Heart Surgery 148 MG/DL (74-106); Hematocrit Heart Surgery 35.7 PERCENT (42-52); Hemoglobin Heart Surgery 11.6 G/DL (14.0-18.0)
[2017-06-17 00:22] LABS: ABG Base Excess -1.1 MMOL/L (-2.5-2.5); ABG HCO3 23.5 MMOL/L (20-26); ABG Oxygen Saturation 98.1 % (95-100); ABG PCO2 42.7 MM HG (35-48); ABG PH 7.364 (7.35-7.45); ABG TCO2 21.8 MMOL/L (23-27); Glucose Heart Surgery 152 MG/DL (74-106); Hematocrit Heart Surgery 35.4 PERCENT (42-52); Hemoglobin Heart Surgery 11.5 G/DL (14.0-18.0); Potassium Heart/CVR 5.1 MMOL/L (3.5-5.1)
[2017-06-17] MEDS: MORPHINE 10 MG/1 ML VIAL IV PRN (01:16)
[2017-06-17 02:51] LABS: ABG Base Excess -2.2 MMOL/L (-2.5-2.5); ABG HCO3 22.6 MMOL/L (20-26); ABG Oxygen Saturation 97.5 % (95-100); ABG PCO2 45.5 MM HG (35-48); ABG PH 7.329 (7.35-7.45); ABG TCO2 21.6 MMOL/L (23-27); Glucose Heart Surgery 151 MG/DL (74-106); Hematocrit Heart Surgery 34.9 PERCENT (42-52); Hemoglobin Heart Surgery 11.3 G/DL (14.0-18.0); Potassium Heart/CVR 5.4 MMOL/L (3.5-5.1)
[2017-06-17 03:20] LABS: ABG Base Excess -2.2 MMOL/L (-2.5-2.5); ABG HCO3 22.4 MMOL/L (20-26); ABG Oxygen Saturation 89.2 % (95-100); ABG PCO2 48.3 MM HG (35-48); ABG PH 7.312 (7.35-7.45); ABG PO2 62.6 MM HG (80-95); ABG TCO2 22.1 MMOL/L (23-27); Glucose Heart Surgery 154 MG/DL (74-106); Hematocrit Heart Surgery 35.1 PERCENT (42-52); Hemoglobin Heart Surgery 11.4 G/DL (14.0-18.0); Potassium Heart/CVR 5.2 MMOL/L (3.5-5.1)
[2017-06-17 03:22] LABS: Basophils % 0.2 % (0.0-0.8); Eosinophils % 0.1 % (0.00-10.9); Hematocrit 33.2 VOL% (42.0-52.0); Hemoglobin 11.1 GM/DL (14.0-18.0); Immature Granulocytes % 0.4 %; Immature Granulocytes Absolute 0.04 #; Lymphocytes # 0.6 10*3/uL (1.4-4.0); Lymphocytes % 5.6 % (21.2-54.2); Mean Corpuscular HGB Conc 33.4 GM/DL (32-36); Mean Corpuscular Hemoglobin 30 PG (27-34); Mean Platelet Volume 9.9 FL (9.6-12.0); Monocytes # 0.5 10*3/uL (0.11-0.8); Monocytes % 5.2 % (1.7-12.7); Neutrophils # 9.1 10*3/uL (1.4-7.4); Neutrophils % 88.5 % (38.7-73.9); Platelet Count 127 T/CUMM (130-400); Red Blood Count 3.73 MC/CUMM (3.8-5.5); Red Cell Distribution Width 17.2 % (9.3-17.3); White Blood Count 10.2 T/CUMM (4-12)
[2017-06-17 03:46] LABS: Albumin 3.5 G/DL (3.4-5.0); Bilirubin,Direct 0.22 MG/DL (0.0-0.20); Bilirubin,Total 0.6 MG/DL (0.2-1.0); Calcium 8.9 MG/DL (8.5-10.1); Magnesium 2.8 MG/DL (1.8-2.4); Osmolality,Calculated 290.5 MOS/KG (273-304); Potassium 5.3 MMOL/L (3.5-5.1); Total Protein 5.9 G/DL (6.4-8.3)
[2017-06-17 03:54] LABS: CKMB % 3.2 %
[2017-06-17 03:56] LABS: Troponin I Only 8.26 NG/ML (0.00-0.045)
[2017-06-17 04:03] LABS: ABG Base Excess -1.6 MMOL/L (-2.5-2.5); ABG PCO2 48.3 MM HG (35-48); ABG PH 7.321 (7.35-7.45); ABG PO2 72.5 MM HG (80-95); ABG TCO2 22.5 MMOL/L (23-27); Glucose Heart Surgery 156 MG/DL (74-106); Hematocrit Heart Surgery 34.8 PERCENT (42-52); Hemoglobin Heart Surgery 11.3 G/DL (14.0-18.0); Potassium Heart/CVR 5.2 MMOL/L (3.5-5.1)
[2017-06-17] MEDS ORDERED: DEXTROSE 50% 25 GM/50 ML VIAL IV PRN ×3 (06:24→14:21)
[2017-06-17] MEDS ORDERED: GLUCAGON 1 MG VIAL IM PRN ×3 (06:24→14:21)
[2017-06-17] MEDS: CEFUROXIME INJ 1,500 MG in SYRINGE 1 EACH IV SCH (06:28)
[2017-06-17] MEDS: SUCRALFATE 1 GM TABLET PO SCH ×4 (08:15→20:21)
[2017-06-17] MEDS: MORPHINE 2 MG/1 ML SYRINGE IV PRN (08:17)
[2017-06-17] MEDS: CHLORHEXIDINE 0.12% ORAL RINSE 60 ML BOTTLE SWISH/SPIT SCH ×3 (08:21→23:49)
[2017-06-17] MEDS: NITROPRUSSIDE 100 MG in DEXTROSE 5% 250 ML IV PRN (08:50)
[2017-06-17] MEDS: NITROGLYCERIN 2% OINT 1 INCH/GM PACK TOP SCH (10:27)
[2017-06-17] MEDS: FUROSEMIDE 40 MG/4 ML VIAL IV SCH (10:27)
[2017-06-17] MEDS: INSULIN REGULAR 100 UNIT/ML SUBCUT SCH (10:27)
[2017-06-17] MEDS: ASPIRIN 325 MG TABLET PO SCH (10:28)
[2017-06-17] MEDS: amLODIPine 5 MG TABLET PO SCH (10:29)
[2017-06-17] MEDS: DOCUSATE SODIUM 100 MG CAPSULE PO SCH (10:29)
[2017-06-17] MEDS: PANTOPRAZOLE 40 MG TABLET PO SCH (10:29)
[2017-06-17] MEDS: CARVEDILOL 6.25 MG TABLET PO SCH ×2 (10:29→20:21)
[2017-06-17] MEDS: LOSARTAN 50 MG TABLET PO SCH (10:29)
[2017-06-17] MEDS ORDERED: INSULIN REGULAR 100 UNIT/ML SUBCUT SCH (12:00)
[2017-06-17 13:29] LABS: CKMB % 2.4 %
[2017-06-17 13:32] LABS: Troponin I Only 8.3 NG/ML (0.00-0.045)
[2017-06-17] MEDS ORDERED: SODIUM CHLOR 0.45% KCL 20 MEQ 20 MEQ/1,000 ML BAG IV SCH (14:21)
[2017-06-17] MEDS ORDERED: POTASSIUM CHLORIDE 20 MEQ TABLET PO PRN (14:21)
[2017-06-17] MEDS ORDERED: ONDANSETRON 4 MG/2 ML VIAL IV PRN (14:21)
[2017-06-17] MEDS ORDERED: MAGNESIUM SULF RIDER 2 GM in PREMIX 1 EACH IV PRN (14:21)
[2017-06-17] MEDS ORDERED: ALUMINUM/MAGNES/SIMETH MAX STR 30 ML UDCUP PO PRN (14:21)
[2017-06-17] MEDS ORDERED: KETOROLAC 30 MG/1 ML VIAL IV PRN (14:21)
[2017-06-17] MEDS ORDERED: ZALEPLON 5 MG CAPSULE PO PRN (14:21)
[2017-06-17] MEDS ORDERED: ACETAMINOPHEN 325 MG TABLET PO PRN (14:21)
[2017-06-17] MEDS ORDERED: MAGNESIUM SULF RIDER 4 GM in PREMIX 1 EACH IV PRN (14:21)
[2017-06-17] MEDS ORDERED: MAGNESIUM HYDROXIDE SUSP 30 ML UDCUP PO PRN (14:21)
[2017-06-17] MEDS: oxyCODONE/ACETAMINOPHEN 5-325 MG TABLET PO PRN (15:41)
[2017-06-17] MEDS: ATORVASTATIN 80 MG TABLET PO SCH (20:21)
[2017-06-18] MEDS: MORPHINE 2 MG/1 ML SYRINGE IV PRN ×2 (00:01→05:44)
[2017-06-18 05:16] LABS: Basophils # 0.1 10*3/uL (0.0-0.2); Basophils % 0.5 % (0.0-0.8); Eosinophils # 0.1 10*3/uL (0.0-0.87); Eosinophils % 0.8 % (0.00-10.9); Hematocrit 33.7 VOL% (42.0-52.0); Hemoglobin 11.5 GM/DL (14.0-18.0); Immature Granulocytes % 0.5 %; Immature Granulocytes Absolute 0.06 #; Lymphocytes # 1.8 10*3/uL (1.4-4.0); Lymphocytes % 14.5 % (21.2-54.2); Mean Corpuscular HGB Conc 34.1 GM/DL (32-36); Mean Corpuscular Hemoglobin 30 PG (27-34); Mean Corpuscular Volume 88.5 FL (87-102); Mean Platelet Volume 10.8 FL (9.6-12.0); Monocytes # 1.5 10*3/uL (0.11-0.8); Monocytes % 11.6 % (1.7-12.7); Neutrophils # 9.2 10*3/uL (1.4-7.4); Neutrophils % 72.1 % (38.7-73.9); Platelet Count 132 T/CUMM (130-400); Red Blood Count 3.81 MC/CUMM (3.8-5.5); Red Cell Distribution Width 16.9 % (9.3-17.3); White Blood Count 12.7 T/CUMM (4-12)
[2017-06-18 05:45] LABS: Albumin 3.2 G/DL (3.4-5.0); Bilirubin,Direct 0.2 MG/DL (0.0-0.20); Bilirubin,Indirect 0.7 MG/DL (0.0-1.0); Bilirubin,Total 0.9 MG/DL (0.2-1.0); CKMB % 1.8 %; Calcium 8.2 MG/DL (8.5-10.1); Magnesium 2.2 MG/DL (1.8-2.4); Osmolality,Calculated 285.5 MOS/KG (273-304); Potassium 4.2 MMOL/L (3.5-5.1); Total Protein 5.9 G/DL (6.4-8.3)
[2017-06-18] MEDS ORDERED: FUROSEMIDE 40 MG/4 ML VIAL IV ONE (06:00)
[2017-06-18] MEDS: SODIUM CHLORIDE 0.45% 1,000 ML IV SCH ×2 (07:28)
[2017-06-18] MEDS: PANTOPRAZOLE 40 MG TABLET PO SCH (09:20)
[2017-06-18] MEDS: FERROUS SULFATE 325 MG TABLET PO SCH (09:20)
[2017-06-18] MEDS: SUCRALFATE 1 GM TABLET PO SCH ×4 (09:20→21:37)
[2017-06-18] MEDS: ASPIRIN EC 325 MG TABLET PO SCH (09:20)
[2017-06-18] MEDS: CARVEDILOL 6.25 MG TABLET PO SCH ×2 (09:20→21:37)
[2017-06-18] MEDS: CHLORHEXIDINE 0.12% ORAL RINSE 60 ML BOTTLE SWISH/SPIT SCH ×2 (09:20→21:39)
[2017-06-18] MEDS: DOCUSATE SODIUM 100 MG CAPSULE PO SCH (09:20)
[2017-06-18] MEDS: [UNRECOGNIZED DRUG - OTHER] PO SCH (10:07)
[2017-06-18] MEDS: BIOT PO SCH (10:07)
[2017-06-18] MEDS: ZINC PO SCH (10:07)
[2017-06-18] MEDS: VIT B CPLX PO SCH (10:07)
[2017-06-18] MEDS: ZN OX PO SCH (10:07)
[2017-06-18] MEDS: ATORVASTATIN 80 MG TABLET PO SCH (21:37)
[2017-06-18] MEDS: oxyCODONE/ACETAMINOPHEN 5-325 MG TABLET PO PRN (21:38)
[2017-06-19 05:08] LABS: Basophils % 0.4 % (0.0-0.8); Eosinophils # 0.1 10*3/uL (0.0-0.87); Eosinophils % 1.4 % (0.00-10.9); Hematocrit 32.5 VOL% (42.0-52.0); Hemoglobin 10.9 GM/DL (14.0-18.0); Immature Granulocytes % 0.4 %; Immature Granulocytes Absolute 0.04 #; Lymphocytes # 1.4 10*3/uL (1.4-4.0); Lymphocytes % 14.4 % (21.2-54.2); Mean Corpuscular HGB Conc 33.5 GM/DL (32-36); Mean Corpuscular Hemoglobin 30 PG (27-34); Mean Corpuscular Volume 88.3 FL (87-102); Mean Platelet Volume 10.7 FL (9.6-12.0); Monocytes # 1.2 10*3/uL (0.11-0.8); Monocytes % 12.1 % (1.7-12.7); Neutrophils # 6.8 10*3/uL (1.4-7.4); Neutrophils % 71.3 % (38.7-73.9); Platelet Count 108 T/CUMM (130-400); Red Blood Count 3.68 MC/CUMM (3.8-5.5); Red Cell Distribution Width 16.2 % (9.3-17.3); White Blood Count 9.5 T/CUMM (4-12)
[2017-06-19 05:31] LABS: Alanine Aminotransferase 33 U/L (16-61); Albumin 3.2 G/DL (3.4-5.0); Alkaline Phosphatase 60 U/L (45-117); Aspartate Amino Transferase 25 U/L (0-37); Bilirubin,Indirect 0.2 MG/DL (0.0-1.0); Blood Urea Nitrogen 57 MG/DL (7-18); Calcium 8.7 MG/DL (8.5-10.1); Glucose 105 MG/DL (74-106); Magnesium 2.5 MG/DL (1.8-2.4); Osmolality,Calculated 288.8 MOS/KG (273-304); Potassium 4.5 MMOL/L (3.5-5.1); Sodium 137 MMOL/L (136-145); Total Protein 6.2 G/DL (6.4-8.3)
[2017-06-19] MEDS: oxyCODONE/ACETAMINOPHEN 5-325 MG TABLET PO PRN (08:51)
[2017-06-19] MEDS: SUCRALFATE 1 GM TABLET PO SCH ×4 (13:07→21:36)
[2017-06-19] MEDS: ASPIRIN EC 325 MG TABLET PO SCH (13:46)
[2017-06-19] MEDS: PANTOPRAZOLE 40 MG TABLET PO SCH (13:48)
[2017-06-19] MEDS: DOCUSATE SODIUM 100 MG CAPSULE PO SCH (13:48)
[2017-06-19] MEDS: FERROUS SULFATE 325 MG TABLET PO SCH (13:48)
[2017-06-19] MEDS: [UNRECOGNIZED DRUG - OTHER] PO SCH (14:50)
[2017-06-19] MEDS: VIT B CPLX PO SCH (14:50)
[2017-06-19] MEDS: ZN OX PO SCH (14:50)
[2017-06-19] MEDS: ZINC PO SCH (14:50)
[2017-06-19] MEDS: CARVEDILOL 6.25 MG TABLET PO SCH ×2 (14:50→21:36)
[2017-06-19] MEDS: BIOT PO SCH (14:50)
[2017-06-19] MEDS: CHLORHEXIDINE 0.12% ORAL RINSE 60 ML BOTTLE SWISH/SPIT SCH ×2 (18:53→21:36)
[2017-06-19] MEDS: ATORVASTATIN 80 MG TABLET PO SCH (21:36)
[2017-06-20 08:09] VITALS: BP 112/66
[2017-06-20] MEDS: SUCRALFATE 1 GM TABLET PO SCH (09:15)
[2017-06-20] MEDS: ASPIRIN EC 325 MG TABLET PO SCH (09:15)
[2017-06-20] MEDS: PANTOPRAZOLE 40 MG TABLET PO SCH (09:15)
[2017-06-20] MEDS: CARVEDILOL 6.25 MG TABLET PO SCH (09:15)
[2017-06-20] MEDS: FERROUS SULFATE 325 MG TABLET PO SCH (09:15)
[2017-06-20] MEDS: DOCUSATE SODIUM 100 MG CAPSULE PO SCH (09:15)
[2017-06-20] MEDS: ZINC PO SCH (09:19)
[2017-06-20] MEDS: CHLORHEXIDINE 0.12% ORAL RINSE 60 ML BOTTLE SWISH/SPIT SCH (09:19)
[2017-06-20] MEDS: VIT B CPLX PO SCH (09:19)
[2017-06-20] MEDS: ZN OX PO SCH (09:19)
[2017-06-20] MEDS: [UNRECOGNIZED DRUG - OTHER] PO SCH (09:19)
[2017-06-20] MEDS: BIOT PO SCH (09:19)
== END 2017-06-20 11:25 | disposition home or self-care (01) | DRG 233 ==
LOC: EDUNIT# → EDBD → N.ED 20:22 → SUATTDRO 23:50 → N.EDINP 23:50 → N.5E 06-09 02:35 → N.TELEN 06-11 18:44 → N.CVR 06-16 07:43 → N.TELES 06-17 15:34
PROVIDERS: ADMIT Internal Medicine Geriatric Medicine; ATTEND Hospitalist
PROC: CLCCHCL (ICD-10-PCS; 2017-06-10 07:45)